=== PATIENT | male | born 1950 | race Caucasian/White ===

== ENCOUNTER → 2018-12-26 11:43 | Day surgery (SDC) | payer MEDICARE, OTHER ==
[~2018-12-26 11:43] MED LIST: Buffered Lidocaine 1% SYRIN* 1 ML/SYRINGE INTRADERM ONE; Lactated Ringers 1000 ML Bag* 1,000 ML IV SCH; Lidocaine 2% PF * 5 ML VIAL ONE; Naloxone* 0.4 MG/ML 1 ML VIAL IV PRN; Propofol* 10 MG/ML 20 ML BTL ONE; fentaNYL* 50 MCG/ML 2 ML VIAL (100 MCG VIAL) ONE
[2018-12-26 15:55] VITALS: BP 115/60
--- NOTE | 2018-12-29 22:04 | PRO ---
CC: Dr. Holloway * DATE OF PROCEDURE: 12/26/18 [facility] PROCEDURE: EGD with biopsy. REFERRING PROVIDER: Dr. Holloway. INDICATION: The patient was seen in clinic in November. At that point, he was noted on routine labs to have a hemoglobin of 6 and a hematocrit of 19 in the setting of an INR of 6.7. He was having melena at that time. He was given blood transfusions. Started on PPI daily. The patient is on daily aspirin and Coumadin use. INR goal 2.5. History of Velasquez's esophagus, which was diagnosed in the . Plan at last visit was to increase omeprazole to 40 mg daily and schedule EGD with Anesthesia. He has been continued on his Coumadin. Follow-up labs several days before this procedure demonstrated a stable hemoglobin and INR of 2.3. MEDICATIONS GIVEN: By Anesthesia. DESCRIPTION OF PROCEDURE: Full disclosure of risks was reviewed with the patient as detailed on the consent form. The patient was placed in the left lateral decubitus position and monitored with continuous pulse oximetry, capnography, interval blood pressure monitoring, and direct observation. A bite -block was placed between the patient's teeth. An adult gastroscope was then inserted into the patient's mouth and advanced down the esophagus, into the stomach, and into the distal duodenum. Findings and interventions are described below. FINDINGS: Esophagus was a normal tubular structure without rings or strictures. In the distal esophagus, at the GE junction, there was a small erosion. GE junction also appeared mildly irregular. Scope was then advanced into the stomach. Stomach was examined in the forward and retroflexed views. There was a small amount of residual dark fluid and food debris. There were small streaks of old red blood seen amid the stomach debris. The stomach was washed extensively. I was able to suction a moderate amount of the fluid out, although I was unable to completely remove the fluid containing debris. This resulted in some limited views of the mucosa. There did appear to be generalized friability of the gastric mucosa. Along the lesser curvature of the stomach, there were at least two 1 cm clean-based ulcers. There were also scattered erosions in the stomach. Biopsy was obtained from the antrum for CLOtest. The scope was then advanced into the duodenum to at least the third portion. There was retained liquid and food debris seen in the duodenum. No AVMs or erosions/ulcers. Scope was then withdrawn from the patient. The patient tolerated the procedure well and was recovered in the GI recovery area. IMPRESSION: 1. Complete upper endoscopy to the distal duodenum. 2. Tiny erosion at the GE junction. Irregular Z-line. 3. Two clean-based 1 cm gastric ulcers and scattered gastric erosions. These findings could certainly account for patient's melena and acute Hgb drop, particularly as these were likely larger prior to Omeprazole dose increase. 4. 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 FOLLOWUP: 1. Await CLOtest. 2. Recommend increasing the patient's PPI to omeprazole 40 mg twice daily given today's findings. 3. Will plan for repeat EGD in 8 weeks to reassess. Will consider Coumadin hold prior to next EGD. 4. Recommend repeating CBC in 2-4 weeks to ensure blood counts are stable. Thank you very much for this referral. [id number]/CPS #: [id number] MARTINEZ
== END | disposition home or self-care (01) ==
LOC: OR 11:43
PROVIDERS: ATTEND Internal Medicine Gastroenterology
DX: K25.0 Acute gastric ulcer with hemorrhage (principal); Z79.01 Long term (current) use of anticoagulants; Z79.82 Long term (current) use of aspirin; I48.0 Paroxysmal atrial fibrillation; J44.9 Chronic obstructive pulmonary disease, unspecified; Z99.81 Dependence on supplemental oxygen; Z79.891 Long term (current) use of opiate analgesic; K21.9 Gastro-esophageal reflux disease without esophagitis; D64.9 Anemia, unspecified; I73.9 Peripheral vascular disease, unspecified
CPT/HCPCS: 87077; J2704; J3010

== ENCOUNTER 2020-03-28 19:04 | Inpatient (IN) ==
[2020-03-28 21:13] LABS: Urine Appearance Clear; Urine Bilirubin Negative (Negative); Urine Blood Negative (Negative); Urine Color Yellow; Urine Glucose Negative (Negative); Urine Ketones Negative (Negative); Urine Nitrite Negative (Negative); Urine Protein Negative (Negative); Urine Urobilinogen Negative (Negative)
[2020-03-28 21:23] LABS: Hematocrit 27 % (42-52); Mean Corpuscular HGB Conc 33 g/dL (31-36); Mean Corpuscular Hemoglobin 31 pg (27-31); Mean Corpuscular Volume 95 fL (80-94); Mean Platelet Volume 7.9 fL (7.4-10.4); Platelet Count 287 10^3/uL (150-450); Red Blood Count 2.88 10^6 /uL (4.18-5.48); Red Cell Distribution Width 15 % (10-15); White Blood Count 15.7 10^3/uL (3.5-10.8)
[2020-03-28] MEDS ORDERED: Albuterol/Ipratropium NEB.SOL (2.5/0.5 MG) 3 ML NEB.SOLN INH ONE (21:33)
[2020-03-28 21:41] LABS: ALT 7 U/L (7-52); Albumin 3.1 g/dL (3.2-5.2); Albumin/Globulin Ratio 1.2 (1-3); Alkaline Phosphatase 87 U/L (34-104); BUN/Creatinine Ratio 24.9 (8-20); Blood Urea Nitrogen 56 mg/dL (6-24); C Reactive Protein 14.93 mg/L (<8.01); CO2 Carbon Dioxide 27 mmol/L (22-32); Calcium 8.4 mg/dL (8.6-10.3); Chloride 104 mmol/L (101-111); EGFR Non-African American 28.9 (>60); Globulin 2.6 g/dL (2-4); Glucose 118 mg/dL (70-100); Lipase 10 U/L (11.0-82.0); Sodium 138 mmol/L (135-145); Total Protein 5.7 g/dL (6.4-8.9)
[2020-03-28 21:43] LABS: Troponin I 0.04 ng/mL (<0.03)
[2020-03-28] MEDS ORDERED: Morphine 4 MG/ML VIAL (1 ml) IV ONE (21:56)
[2020-03-28] MEDS ORDERED: Pantoprazole 80 mg in NS BAG 80 MG/250 ML BAG IV ONE (22:03)
[2020-03-28 22:18] LABS: AST 14 U/L (13-39); Anion Gap 7 mmol/L (2-11); Potassium 4.6 mmol/L (3.5-5.0)
[2020-03-28 22:23] LABS: Hematocrit 29 % (42-52); Hemoglobin 9.5 g/dL (14.0-18.0)
[2020-03-28 22:33] LABS: ABS Lymphocytes 0.3 10^3/ul (1.0-4.8); ABS Monocytes 0.6 10^3/ul (0-0.8); ABS Neutrophils 14.7 10^3/ul (1.5-7.7); Lymphocyte % 1.9 %
[2020-03-28] MEDS ORDERED: Ondansetron 4 mg VIAL 2 MG/ML 2 ml VIAL IV ONE (22:33)
[2020-03-28] MEDS ORDERED: Ondansetron 4 mg VIAL 2 MG/ML 2 ml VIAL ONE (22:35)
[2020-03-28] MEDS ORDERED: Lidocaine 2% JELLY 6 ML TOPICAL ONE (23:44)
[2020-03-29] MEDS ORDERED: Ondansetron 4 mg VIAL 2 MG/ML 2 ml VIAL IV PRN (01:15)
[2020-03-29 01:43] LABS: Hematocrit 28 % (42-52); Hemoglobin 9.1 g/dL (14.0-18.0)
[2020-03-29] MEDS ORDERED: Lactated Ringers 500 ml BAG 500 ML IV ONE (01:43)
[2020-03-29] MEDS: Albuterol/Ipratropium NEB.SOL (2.5/0.5 MG) 3 ML NEB.SOLN INH SCH ×6 (03:41→23:15)
[2020-03-29 05:20] LABS: BUN/Creatinine Ratio 26.7 (8-20); Blood Urea Nitrogen 48 mg/dL (6-24); CO2 Carbon Dioxide 25 mmol/L (22-32); Calcium 7.9 mg/dL (8.6-10.3); Chloride 105 mmol/L (101-111); EGFR African American 45.2 (>60); EGFR Non-African American 37.4 (>60); Glucose 123 mg/dL (70-100); Phosphorus 3.1 mg/dL (2.5-5.0); Sodium 136 mmol/L (135-145)
[2020-03-29 05:33] LABS: Anion Gap 6 mmol/L (2-11); Troponin I 0.04 ng/mL (<0.03)
[2020-03-29 05:35] LABS: ABS Lymphocytes 0.4 10^3/ul (1.0-4.8); ABS Monocytes 1.5 10^3/ul (0-0.8); ABS Neutrophils 15.8 10^3/ul (1.5-7.7); Hematocrit 25 % (42-52); Hemoglobin 8.8 g/dL (14.0-18.0); Lymphocyte % 2.1 %; Mean Corpuscular HGB Conc 35 g/dL (31-36); Mean Corpuscular Hemoglobin 33 pg (27-31); Mean Corpuscular Volume 92 fL (80-94); Platelet Count 295 10^3/uL (150-450); Red Blood Count 2.68 10^6 /uL (4.18-5.48); Red Cell Distribution Width 15 % (10-15); White Blood Count 17.7 10^3/uL (3.5-10.8)
[2020-03-29 06:12] LABS: Magnesium 1.9 mg/dL (1.9-2.7); Potassium Redraw 4.8 mmol/L (3.5-5.0)
[2020-03-29] MEDS: Tiotropium Brom/Olodaterol MDI INH SCH (07:38)
[2020-03-29] MEDS ORDERED: Calcium Carb (TUMS) 500 mg CHEW TAB PO PRN (08:00)
[2020-03-29] MEDS ORDERED: Pantoprazole 80 mg in NS BAG 80 MG/250 ML BAG IV SCH (08:00)
[2020-03-29] MEDS: cefTRIAXone 1 gm/50 mL NS BAG 1 GM/50 ML BAG IVPB SCH ×2 (09:17→22:18)
[2020-03-29 12:27] LABS: Hematocrit 27 % (42-52); Hemoglobin 8.7 g/dL (14.0-18.0)
[2020-03-29] MEDS ORDERED: Midazolam 10 mg/10 ml VIAL 1 mg/ml 10 ml VIAL (10 mg) ONE (12:27)
[2020-03-29] MEDS ORDERED: fentaNYL 100 mcg/2 ml 50 MCG/ML VIAL ONE (12:27)
[2020-03-29] MEDS: Pantoprazole VIAL 40 MG VIAL IV SCH (22:20)
[2020-03-29] MEDS: oxyCODONE SR 20 mg TAB PO SCH (22:26)
[2020-03-30] MEDS: Albuterol/Ipratropium NEB.SOL (2.5/0.5 MG) 3 ML NEB.SOLN INH SCH ×7 (00:07→23:12)
[2020-03-30 05:17] LABS: ABS Eosinophils 0.1 10^3/ul (0-0.6); ABS Lymphocytes 0.9 10^3/ul (1.0-4.8); ABS Monocytes 0.8 10^3/ul (0-0.8); Eosinophil % 1.1 %; Hematocrit 22 % (42-52); Hemoglobin 7.5 g/dL (14.0-18.0); Lymphocyte % 11.1 %; Mean Corpuscular HGB Conc 33 g/dL (31-36); Mean Corpuscular Hemoglobin 32 pg (27-31); Mean Corpuscular Volume 95 fL (80-94); Platelet Count 220 10^3/uL (150-450); Red Blood Count 2.34 10^6 /uL (4.18-5.48); Red Cell Distribution Width 15 % (10-15); White Blood Count 7.8 10^3/uL (3.5-10.8)
[2020-03-30 05:50] LABS: BUN/Creatinine Ratio 27.2 (8-20); Calcium 8.4 mg/dL (8.6-10.3); EGFR African American 51.1 (>60); EGFR Non-African American 42.2 (>60); Potassium 4.3 mmol/L (3.5-5.0)
[2020-03-30] MEDS: Tiotropium Brom/Olodaterol MDI INH SCH (07:45)
[2020-03-30] MEDS: Pantoprazole VIAL 40 MG VIAL IV SCH ×2 (08:56→21:12)
[2020-03-30] MEDS: oxyCODONE SR 20 mg TAB PO SCH ×3 (08:56→21:10)
[2020-03-30] MEDS: cefTRIAXone 1 gm/50 mL NS BAG 1 GM/50 ML BAG IVPB SCH ×2 (09:06→21:12)
[2020-03-30 12:11] LABS: ABS Eosinophils 0.1 10^3/ul (0-0.6); ABS Lymphocytes 0.7 10^3/ul (1.0-4.8); ABS Monocytes 0.9 10^3/ul (0-0.8); ABS Neutrophils 9.5 10^3/ul (1.5-7.7); Eosinophil % 0.6 %; Hematocrit 26 % (42-52); Hemoglobin 8.5 g/dL (14.0-18.0); Lymphocyte % 6.6 %; Mean Corpuscular HGB Conc 33 g/dL (31-36); Mean Corpuscular Hemoglobin 31 pg (27-31); Mean Corpuscular Volume 95 fL (80-94); Mean Platelet Volume 7.6 fL (7.4-10.4); Platelet Count 290 10^3/uL (150-450); Red Blood Count 2.73 10^6 /uL (4.18-5.48); Red Cell Distribution Width 15 % (10-15); White Blood Count 11.2 10^3/uL (3.5-10.8)
[2020-03-30] MEDS: oxyCODONE/Acetamin 5/325 mg TAB PO PRN (13:24)
[2020-03-31] MEDS: Albuterol/Ipratropium NEB.SOL (2.5/0.5 MG) 3 ML NEB.SOLN INH SCH ×8 (00:11→22:57)
[2020-03-31 05:49] LABS: ABS Eosinophils 0.2 10^3/ul (0-0.6); ABS Lymphocytes 0.8 10^3/ul (1.0-4.8); ABS Monocytes 0.9 10^3/ul (0-0.8); ABS Neutrophils 7.1 10^3/ul (1.5-7.7); Corrected Retic Count 0.6 % (0.5-1.5); Eosinophil % 2.1 %; Hematocrit 16 % (42-52); Hematocrit for Retic CNT 16 % (42-52); Hemoglobin 5.6 g/dL (14.0-18.0); Immature Retic Fraction 0.59; Lymphocyte % 9.1 %; Mean Corpuscular HGB Conc 35 g/dL (31-36); Mean Corpuscular Hemoglobin 33 pg (27-31); Mean Corpuscular Volume 94 fL (80-94); Mean Platelet Volume 7.8 fL (7.4-10.4); Platelet Count 210 10^3/uL (150-450); RBC Retic Count 1.69 10^6/uL (4.18-5.48); Red Blood Count 1.69 10^6 /uL (4.18-5.48); Red Cell Distribution Width 15 % (10-15)
[2020-03-31 05:55] LABS: Anion Gap 1 mmol/L (2-11); BUN/Creatinine Ratio 26.5 (8-20); Blood Urea Nitrogen 41 mg/dL (6-24); CO2 Carbon Dioxide 33 mmol/L (22-32); Chloride 104 mmol/L (101-111); EGFR African American 53.8 (>60); EGFR Non-African American 44.4 (>60); Glucose 107 mg/dL (70-100); Magnesium 1.7 mg/dL (1.9-2.7); Potassium 4.5 mmol/L (3.5-5.0); Sodium 138 mmol/L (135-145)
[2020-03-31 06:26] LABS: % Iron Saturation 34 % (15-55); Iron 75 ug/dL (50-212); Total Iron Binding Capacity 218 mcg/dL (250-450); Transferrin 156 mg/dL (203-362); Unsaturated Iron Binding < 203 ug/dL
[2020-03-31 07:24] LABS: Hematocrit 19 % (42-52); Hemoglobin 6.1 g/dL (14.0-18.0)
[2020-03-31] MEDS: Tiotropium Brom/Olodaterol MDI INH SCH (07:43)
[2020-03-31] MEDS ORDERED: Magnesium Sulfate 2 gm BAG 2 GM/50 ML BAG IVPB ONE (07:44)
[2020-03-31] MEDS ORDERED: Morphine 2 MG/ML SYRINGE IV PRN (07:54)
[2020-03-31] MEDS: cefTRIAXone 1 gm/50 mL NS BAG 1 GM/50 ML BAG IVPB SCH ×2 (08:29→21:57)
[2020-03-31] MEDS: oxyCODONE SR 20 mg TAB PO SCH ×4 (08:32→21:55)
[2020-03-31 08:55] LABS: Folate 4.03 ng/mL (>3.99)
[2020-03-31 08:56] LABS: Vitamin B12 483 pg/mL (180-914)
[2020-03-31 09:04] LABS: Activated Partial Thrombo Time 28.3 seconds (26.0-38.0); INR 1.08 (0.82-1.09)
[2020-03-31] MEDS: Pantoprazole 80 mg in NS BAG 80 MG/250 ML BAG IV SCH ×2 (09:40→14:13)
[2020-03-31 12:37] LABS: Hematocrit 20 % (42-52); Hemoglobin 6.6 g/dL (14.0-18.0)
[2020-03-31] MEDS ORDERED: Propofol 10 MG/ML 20 ML BTL ONE (12:53)
[2020-03-31] MEDS ORDERED: fentaNYL 100 mcg/2 ml 50 MCG/ML VIAL ONE (12:53)
[2020-03-31] MEDS ORDERED: Lidocaine 2% PF 5 ML VIAL ONE (12:53)
[2020-03-31] MEDS ORDERED: Phenylephrine 40 mcg/mL 10mL (400mcg) SYRINGE ONE (13:27)
[2020-03-31] MEDS ORDERED: EPHEDrine (Pressors) 50 MG/ML VIAL ONE (13:29)
[2020-03-31] MEDS ORDERED: Naloxone 0.4 mg VIAL 0.4 mg/ml 1 ml VIAL IV PRN (13:40)
[2020-03-31] MEDS ORDERED: DiMENhydriNATE IV 50 mg/ml 1 ml VIAL IV PUSH PRN (13:40)
[2020-03-31 16:07] LABS: Hematocrit 28 % (42-52); Hemoglobin 9.2 g/dL (14.0-18.0)
[2020-03-31] MEDS: oxyCODONE/Acetamin 5/325 mg TAB PO PRN (19:50)
[2020-04-01 00:32] LABS: Hematocrit 27 % (42-52)
[2020-04-01] MEDS: Albuterol/Ipratropium NEB.SOL (2.5/0.5 MG) 3 ML NEB.SOLN INH SCH ×6 (03:19→23:23)
[2020-04-01] MEDS: Pantoprazole 80 mg in NS BAG 80 MG/250 ML BAG IV SCH ×2 (04:39→14:53)
[2020-04-01 05:35] LABS: Hematocrit 26 % (42-52); Hemoglobin 8.6 g/dL (14.0-18.0); Mean Corpuscular HGB Conc 34 g/dL (31-36); Mean Corpuscular Hemoglobin 31 pg (27-31); Mean Corpuscular Volume 91 fL (80-94); Mean Platelet Volume 8.1 fL (7.4-10.4); Platelet Count 201 10^3/uL (150-450); Red Blood Count 2.82 10^6 /uL (4.18-5.48); Red Cell Distribution Width 16 % (10-15); White Blood Count 9.7 10^3/uL (3.5-10.8)
[2020-04-01 05:51] LABS: BUN/Creatinine Ratio 29.6 (8-20); Calcium 8.1 mg/dL (8.6-10.3); EGFR Non-African American 52.1 (>60); Potassium 4.1 mmol/L (3.5-5.0)
[2020-04-01 06:12] LABS: Ferritin 31.7 ng/mL (24-336)
[2020-04-01 07:01] LABS: ABS Eosinophils 0.3 10^3/ul (0-0.6); ABS Monocytes 0.9 10^3/ul (0-0.8); ABS Neutrophils 7.5 10^3/ul (1.5-7.7); Lymphocyte % 10.1 %
[2020-04-01] MEDS: Tiotropium Brom/Olodaterol MDI INH SCH (07:57)
[2020-04-01] MEDS: oxyCODONE SR 20 mg TAB PO SCH ×3 (10:02→21:06)
[2020-04-01] MEDS ORDERED: Pantoprazole VIAL 40 MG VIAL IV ONE (21:00)
[2020-04-02] MEDS ORDERED: Albuterol/Ipratropium NEB.SOL (2.5/0.5 MG) 3 ML NEB.SOLN INH SCH
[2020-04-02] MEDS: Albuterol/Ipratropium NEB.SOL (2.5/0.5 MG) 3 ML NEB.SOLN INH SCH ×6 (03:34→23:54)
[2020-04-02 05:20] LABS: Hematocrit 24 % (42-52); Hemoglobin 8.1 g/dL (14.0-18.0); Mean Corpuscular HGB Conc 34 g/dL (31-36); Mean Corpuscular Hemoglobin 31 pg (27-31); Mean Corpuscular Volume 92 fL (80-94); Mean Platelet Volume 7.8 fL (7.4-10.4); Platelet Count 213 10^3/uL (150-450); Red Blood Count 2.58 10^6 /uL (4.18-5.48); Red Cell Distribution Width 16 % (10-15); White Blood Count 5.8 10^3/uL (3.5-10.8)
[2020-04-02 05:35] LABS: EGFR African American 67.6 (>60); EGFR Non-African American 55.9 (>60); Magnesium 1.8 mg/dL (1.9-2.7); Potassium 4.3 mmol/L (3.5-5.0)
[2020-04-02] MEDS: oxyCODONE/Acetamin 5/325 mg TAB PO PRN ×2 (06:09→18:08)
[2020-04-02] MEDS: Tiotropium Brom/Olodaterol MDI INH SCH (07:33)
[2020-04-02] MEDS: oxyCODONE SR 20 mg TAB PO SCH ×3 (08:59→21:10)
[2020-04-03] MEDS: Albuterol/Ipratropium NEB.SOL (2.5/0.5 MG) 3 ML NEB.SOLN INH SCH ×3 (04:05→11:33)
[2020-04-03 05:28] LABS: Hematocrit 25 % (42-52); Hemoglobin 8.3 g/dL (14.0-18.0); Mean Corpuscular HGB Conc 34 g/dL (31-36); Mean Corpuscular Hemoglobin 31 pg (27-31); Mean Corpuscular Volume 92 fL (80-94); Mean Platelet Volume 7.2 fL (7.4-10.4); Platelet Count 243 10^3/uL (150-450); Red Blood Count 2.65 10^6 /uL (4.18-5.48); Red Cell Distribution Width 15 % (10-15); White Blood Count 6.9 10^3/uL (3.5-10.8)
[2020-04-03] MEDS: oxyCODONE/Acetamin 5/325 mg TAB PO PRN ×2 (05:49→13:52)
[2020-04-03 07:02] LABS: ABS Eosinophils 0.2 10^3/ul (0-0.6); ABS Lymphocytes 0.9 10^3/ul (1.0-4.8); ABS Monocytes 0.7 10^3/ul (0-0.8); Eosinophil % 3.2 %; Lymphocyte % 13.6 %; Nucleated Red Blood Cells % 0.1
[2020-04-03] MEDS: Tiotropium Brom/Olodaterol MDI INH SCH (07:21)
[2020-04-03] MEDS: oxyCODONE SR 20 mg TAB PO SCH (09:07)
[2020-04-03 11:38] VITALS: BP 107/52
== END 2020-04-03 13:50 | disposition home or self-care (01) | DRG 377 ==
LOC: ED 19:04 → ICU 22:54 → MEDTELE 03-29 21:09
PROVIDERS: ADMIT Student in an Organized Health Care Education/Training Program; ATTEND Internal Medicine
PROC: O.GIEGD (2020-03-31 13:15)